=== PATIENT | female | born 1965 | race Caucasian/White ===

== ENCOUNTER 2024-08-22 22:12 | Emergency (ER) | payer OTHER ==
[~2024-08-22] VITALS: Ht 167.6 cm; Wt 73.0 kg
[2024-08-22 22:26] VITALS: O2SAT 99
[2024-08-23] MEDS: ACETAMINOPHEN 500MG TABLET PO ONE (00:06)
[2024-08-23] MEDS: KETOROLAC 30MG/ML VIAL IM ONE (00:06)
[2024-08-23] MEDS ORDERED: HYDROCODONE/ACETAMINOPHEN 10/325MG TABLET PO ONE ×2 (01:15)
[2024-08-23] MEDS ORDERED: KETO10TA2 MT (01:23)
[2024-08-23] MEDS ORDERED: ACET-2708 MT (01:23)
[2024-08-23] MEDS: HYDROCODONE/ACETAMINOPHEN 10/325MG TABLET PO ONE (01:25)
[2024-08-23 02:11] VITALS: BP 140/84; PULSE 90; RESP 20; TEMP 36.9; O2SAT 99
== END 2024-08-23 02:15 | disposition home or self-care (01) ==
LOC: ER 22:12
DX: S82.032A Displaced transverse fracture of left patella, initial encounter for closed fracture (principal); Z79.899 Other long term (current) drug therapy; W18.30XA Fall on same level, unspecified, initial encounter; Y93.89 Activity, other specified; Y92.89 Other specified places as the place of occurrence of the external cause; Y99.8 Other external cause status
CPT/HCPCS: 81025; 73564; 29505; 99283; 96372; J1885; Z7610